=== PATIENT | female | born 1970 ===

== ENCOUNTER 2021-11-05 10:12 | Emergency (ER) | payer OTHER ==
[~2021-11-05] VITALS: Ht 160 cm; Wt 89.8 kg
[~2021-11-05 10:12] MED LIST: AMOCLA500 PO; LEVSOD200; OXYACE5T PO
[2021-11-05] MEDS ORDERED: CYMBALTA20 M1 PO (11:20)
[2021-11-05] MEDS ORDERED: IBU800 MG PO (11:24)
[2021-11-05] MEDS ORDERED: Roxicodone5 MG PO (11:24)
== END 2021-11-05 11:38 | disposition home or self-care (01) ==
LOC: ER 10:12
DX: S42.252A Displaced fracture of greater tuberosity of left humerus, initial encounter for closed fracture (principal); S42.292A Other displaced fracture of upper end of left humerus, initial encounter for closed fracture; S42.212A Unspecified displaced fracture of surgical neck of left humerus, initial encounter for closed fracture; E03.9 Hypothyroidism, unspecified; W10.9XXA Fall (on) (from) unspecified stairs and steps, initial encounter; Y92.9 Unspecified place or not applicable; Z79.899 Other long term (current) drug therapy; Z88.6 Allergy status to analgesic agent; Z88.5 Allergy status to narcotic agent
CPT/HCPCS: 73030; A9270